=== PATIENT | female | born 1955 | race Caucasian/White ===

== ENCOUNTER → 2016-09-03 | Outpatient (CLI) | payer BC ==
--- NOTE | 2016-09-03 11:29 | MM ---
Reason for exam: screening (asymptomatic). Last mammogram was performed 1 year and 1 month ago. History: Patient is postmenopausal. Family history of breast cancer in sister at age 66 and breast cancer in sister at age 60. Taking estrogen for 16 years. Physical Findings: A clinical breast exam by your physician is recommended on an annual basis and results should be correlated with mammographic findings. MG Screening Mammo w CAD Bilateral CC and MLO view(s) were taken. Prior study comparison: August 15, 2015, bilateral MG screening mammo w CAD. August 12, 2014, bilateral MG screening mammo w CAD. The breast tissue is extremely dense which could obscure a lesion on mammography. Finding: There are typically benign round, diffuse/scattered calcifications in both breasts. There is no discrete abnormality. ASSESSMENT: Benign, BI-RAD 2 RECOMMENDATION: Routine screening mammogram of both breasts in 1 year.
--- NOTE | 2016-09-03 19:45 | WWHP ---
DATE OF SERVICE: 09/03/2016 CHIEF COMPLAINT: Patient is here for her routine gynecologic exam and mammogram. HISTORY OF PRESENT ILLNESS: This is a 61-year-old, G2, P2 with LMP of 1997. She is status post FRANCISCO JAVIER for benign reasons and also has had a previous BSO for benign reasons. She continues to be on low-dose ERT. She tried to come off of ERT about one month ago. She was off of the ERT for about 3 weeks and states hot flashes and anxiety became quite severe so she went back on low-dose ERT. PAST MEDICAL HISTORY: Environmental allergies. MEDICATIONS: 1. Estradiol 0.5 mg daily. 2. Singulair 10 mg daily. 3. Cetirizine 10 mg daily. ALLERGIES: No known drug allergies. 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 SOCIAL HISTORY: She denies tobacco and drug use and has 2 to 3 alcoholic drinks per month. She has been since 1972 and is infrequently sexually active. 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 REVIEW OF SYSTEMS: Weight has been stable. She denies respiratory, cardiac, or GI problems. PHYSICAL EXAM: Blood pressure 144/91. Height 5 feet 4 inches. Weight 163 pounds. Temperature 98.3, pulse 106. This is a well-developed, well-nourished white female who is alert and oriented x3 in no acute distress. HEENT: Within normal limits. NECK: Supple without mass or thyromegaly. CHEST AND LUNGS: Clear to auscultation. HEART: Regular rate and rhythm. BREASTS: Without mass or discharge. Axillary exam is negative for adenopathy. BACK: Negative for CVA tenderness. ABDOMEN: Soft, nontender, without palpable masses. PELVIC EXAM: External genitalia reveals mild atrophy without lesions. Vagina reveals mild atrophy without lesions. There is no evidence of prolapse. Bimanual exam is negative for mass or tenderness. Rectovaginal exam is negative for mass or tenderness and is negative for occult blood. EXTREMITIES: Nontender. IMPRESSION: 1. A 61-year-old menopausal female, status post total abdominal hysterectomy and bilateral salpingo-oophorectomy done for benign reasons. 2. Normal gynecologic exam. 3. Worsening vasomotor symptoms and anxiety when she tried to wean off of ERT. PLAN: 1. Pap smears have been discontinued. 2. Self-breast examination was discussed. 3. Mammogram will be done today. 4. We have had a long discussion regarding ERT. Because of her symptoms we have decided to continue low-dose ERT. Also discussed the possible increased risk for stroke on ERT. I have recommended that she try to wean off of ERT and she will do this in a more gradual way this year. 5. She will follow up with Dr. Mercado for her ongoing medical care. 6. She will return in one year.
== END | disposition home or self-care (01) ==
LOC: WWCWWP 09:44
PROVIDERS: ATTEND Obstetrics & Gynecology
DX: Z12.31 Encounter for screening mammogram for malignant neoplasm of breast (principal)

== ENCOUNTER → 2017-09-16 | Outpatient (CLI) | payer BC ==
--- NOTE | 2017-09-16 22:12 | WWHP ---
[facility] - HISTORY AND PHYSICAL DATE OF DICTATION: 09/16/2017 CHIEF COMPLAINT: The patient is here for her routine gynecologic exam and mammogram. HISTORY OF PRESENT ILLNESS: This is a 62-year-old G2, P2 with an LMP of 1997, She is status post FRANCISCO JAVIER and also BSO for benign reasons. The patient continues to be on low-dose ERT. She has been taking this for hot flashes and anxiety. She states she is planning to wean off of this during the upcoming year. PAST MEDICAL HISTORY: Environmental allergies. MEDICATIONS: 1. Estradiol 0.5 mg daily. 2. Singulair 10 mg daily. 3. Cetirizine 10 mg daily. 4. Kgqe-pet-pkuowek Flonase nasal spray as directed. ALLERGIES: NO KNOWN DRUG ALLERGIES. 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 SOCIAL HISTORY: She denies tobacco and drug use and has about 2 alcohol-containing drinks per week. She has been since 1972. She is a retired mammogram electronics warfare technician. REVIEW OF SYSTEMS: She has gained about 5 pounds over the last year. She denies respiratory, cardiac or GI problems. She recently got over a URI and had taken antibiotics for this. She states she developed slight vulvar pruritus after the antibiotics and thinks she might have the start of a yeast infection. PHYSICAL EXAMINATION: Blood pressure 146/89, height 5 feet 4 inches, weight 168 pounds, BMI 29. Temperature 98.5, pulse 96. This is a well-developed, well-nourished white female who is alert and oriented x3, in no acute distress. HEENT: Within normal limits. NECK: Supple without mass or thyromegaly. CHEST AND LUNGS: Clear to auscultation. HEART: Regular rate and rhythm. Breasts are without mass or discharge. Axillary exam is negative for adenopathy. BACK: Negative for CVA tenderness. ABDOMEN: Soft, nontender, without palpable masses. PELVIC EXAMINATION: External genitalia reveal mild atrophy without lesions. There is minimal erythema. Vagina reveals mild atrophy without lesions and there is no abnormal discharge noted. There is no odor. There is no evidence of prolapse. Bimanual exam is negative for mass or tenderness. Rectovaginal exam is negative for mass or tenderness and is negative for occult blood. Extremities are nontender. IMPRESSION: 1. Bouqo-jluq-fizx-old menopausal female who is status post total abdominal hysterectomy and bilateral salpingo-oophorectomy for benign reasons with unremarkable gynecologic exam. 2. Vulvar pruritus after using antibiotics. Possible early richie vulvitis. 3. Menopausal female on low-dose ERT for vasomotor symptoms and anxiety. PLAN: 1. Pap smears have been discontinued. 2. Self breast examination was discussed. 3. Screening mammogram will be done today. 4. The patient will use [id number] Monistat cream as directed to the external vulva and intravaginally as directed. She will call if her symptoms are not improving. 5. We have had a long discussion regarding ERT as well as possible risks of ERT, including increased risk for stroke and dementia and blood clots. The patient understands these things and states she will plan on weaning off of this right away. She will use her Estrace 0.5 mg every other day for up to 4 months and then try to wean completely off of this. She will call if she has any problems. 6. Osteoporosis prevention was discussed. We will plan on repeating bone density testing next year. 7. She will return in one year. MMODL / IJN: [id number] /
--- NOTE | 2017-09-17 09:30 | MM ---
Reason for exam: screening (asymptomatic). Last mammogram was performed 1 year ago. History: Patient is postmenopausal. Family history of breast cancer in sister at age 66 and breast cancer in sister at age 60. Taking estrogen for 16 years. Physical Findings: A clinical breast exam by your physician is recommended on an annual basis and results should be correlated with mammographic findings. MG Screening Mammo w CAD Bilateral CC and MLO view(s) were taken. Prior study comparison: September 03, 2016, bilateral MG screening mammo w CAD. August 15, 2015, bilateral MG screening mammo w CAD. The breast tissue is heterogeneously dense. This may lower the sensitivity of mammography. Finding: There are typically benign round, diffuse/scattered and grouped calcifications in both breasts. There is no discrete abnormality. ASSESSMENT: Benign, BI-RAD 2 RECOMMENDATION: Routine screening mammogram of both breasts in 1 year.
== END | disposition home or self-care (01) ==
LOC: WWCWWP 12:27
PROVIDERS: ATTEND Obstetrics & Gynecology
DX: Z12.31 Encounter for screening mammogram for malignant neoplasm of breast (principal)
CPT/HCPCS: 77067

== ENCOUNTER 2017-12-26 07:38 | Emergency (ER) | payer BC ==
[2017-12-26 08:03] VITALS: BP 142/84; PULSE 86; RESP 16; TEMP 98
--- NOTE | 2017-12-26 08:05 | ED ---
Lower Extremity Injury HPI - General Chief Complaint: Extremity Injury, Lower Stated Complaint: Fall, ankle pain Time Seen by Provider: 12/26/17 08:00 Source: patient, RN notes reviewed Mode of arrival: wheelchair Limitations: no limitations - History of Present Illness Initial Comments: This is a 62-year-old female presents emergency Department chief complaint of right foot and ankle pain. Patient states that she missed the bottom step yesterday and rolled her ankle. Patient states that his swollen and more painful today. She has had no prior fractures or injuries to her right ankle or foot. Patient states that she had no head neck back or upper extremity injuries. She does have ice on it currently. Patient offers no other complaints. - Related Data Home Medications Medication Instructions Recorded Confirmed Estradiol [Estrace] 0.5 mg PO DAILY 12/26/17 12/26/17 Montelukast [Singulair] 10 mg PO DAILY 12/26/17 12/26/17 Allergies Allergy/AdvReac Type Severity Reaction Status Date / Time No Known Allergies Allergy Verified 12/26/17 08:32 Review of Systems ROS Statement: Those systems with pertinent positive or pertinent negative responses have been documented in the HPI. ROS Other: All systems not noted in ROS Statement are negative. Past Medical History Past Medical History: No Reported History History of Any Multi-Drug Resistant Organisms: None Reported Past Surgical History: Hysterectomy, Tonsillectomy Additional Past Surgical History / Comment(s): sinus surgery, lasik bilaterally Past Psychological History: No Psychological Hx Reported Smoking Status: Former smoker Past Alcohol Use History: None Reported Past Drug Use History: None Reported General Exam Limitations: no limitations General appearance: alert, in no apparent distress Head exam: Present: atraumatic, normocephalic, normal inspection Respiratory exam: Present: normal lung sounds bilaterally. Absent: respiratory distress, wheezes, rales, rhonchi, stridor Cardiovascular Exam: Present: regular rate, normal rhythm, normal heart sounds. Absent: systolic murmur, diastolic murmur, rubs, gallop, clicks Extremities exam: Present: other Neurological exam: Present: reflexes normal (Right ankle there is moderate swelling on the lateral malleolus and lateral foot region there is mild to moderate tenderness with palpation the foot is neurovascularly intact). Absent : motor sensory deficit Skin exam: Present: warm, dry, intact, normal color. Absent: rash Course Vital Signs 12/26/17 08:00 Temperature 98 F Pulse Rate 86 Respiratory 16 Rate Blood Pressure 142/84 O2 Sat by Pulse 97 Oximetry Procedures - Orthopedic Splinting/Casting Injury #1 Side: right Lower Extremity Injury Location: short leg, ankle Lower Extremity Immobilizer: posterior splint, synthetic pre-padded splint Other Orthopedic Equipment: crutches Medical Decision Making - Medical Decision Making 62-year-old female presents for right ankle injury. X-rays were reviewed and radiologist stated there may be an avulsion fracture. Patient will be splinted and follow up with orthopedics today. Disposition Clinical Impression: Avulsion fracture of ankle Disposition: HOME SELF-CARE Condition: Stable Instructions: Ankle Fracture (ED) Additional Instructions: Please return to the Emergency Department if symptoms worsen or any other concerns. Is patient prescribed a controlled substance at d/c from ED?: No Referrals: Marlene Mercado MD [Primary Care Provider] - 1-2 days
--- NOTE | 2017-12-26 08:36 | XR ---
Right foot and right ankle HISTORY: Trauma and pain 3 views of the right foot and 3 views of the right ankle are submitted No comparisons Soft tissue swelling is noted about the ankle. Bone mineralization, joint spaces and alignment are ma intained. Calcification present at the insertion of the Achilles tendon. There is a plantar calcaneal spur present. Ossific densities about the tarsal bones are well-corticated and felt likely to be acc essory ossicles. At the level of the medial malleolus faint ossific densities are noted, there may be ossific density distal to the fibula on the oblique view. There may be a small avulsion injury. IMPRESSION: No dislocation is evident. There may be small avulsion injury as described.
== END 2017-12-26 08:50 | disposition home or self-care (01) ==
LOC: EC 07:38
DX: S82.891A Other fracture of right lower leg, initial encounter for closed fracture (principal); Z87.891 Personal history of nicotine dependence; Z79.818 Long term (current) use of other agents affecting estrogen receptors and estrogen levels; Z79.899 Other long term (current) drug therapy; W10.9XXA Fall (on) (from) unspecified stairs and steps, initial encounter; Y92.009 Unspecified place in unspecified non-institutional (private) residence as the place of occurrence of the external cause
CPT/HCPCS: 29515; 99283

== ENCOUNTER → 2018-08-20 | Day surgery (SDC) | payer MEDICARE ==
[2018-08-17 15:16] VITALS: BMI 27.4
[~2018-08-20] MED LIST: LACTATED RINGERS 1,000 ML IV SCH; LIDOCAINE 1% 20 ML VIAL (10MG/ML) FOR IV START INTRADERMA PRN; LIDOCAINE 1% INJ 10MG/ML (20 ML MDV) ONE; PROPOFOL 10 MG/ML 20 ML VIAL IV ONE
[2018-08-20 07:51] VITALS: RESP 18; TEMP 97.8
--- NOTE | 2018-08-20 09:08 | P.PCN ---
Date of Procedure: 08/20/18 Procedure(s) Performed: Procedure: Colonoscopy and polypectomy. Preoperative diagnosis: Family history of colon cancer and personal history of polyps. Postoperative diagnosis: 1. Two small/diminutive polyps in the cecum and distal sigmoid snared but no large polyps or cancer. 2. Mild sigmoid diverticulosis with no evidence of acute diverticulitis or strictures. Preparation: HalfLytely prep. Sedation: Was provided by anesthesia. Brief clinical history: The patient is a 63-year-old female with family history of colon cancer in her father and sister and who had polyps removed on a prior exam, is now scheduled for screening for neoplasia. Her last exam was around 5 years ago. She has no abdominal complaints, bleeding or anemia. Procedure: With the patient on her left lateral decubitus position and after informed consent and adequate sedation, the perianal area was inspected and it did not show any fissures or fistulas. There were no masses felt on digital rectal examination. The Olympus CFH 190L video colonoscope was then inserted in the rectum in the usual fashion and advanced to the cecum. There was a diminutive polyp in the cecum which I snared and retrieved by suction. There was another small polyp in the distal sigmoid close to the rectosigmoid junction which was snared and retrieved by suction. There was an occasional small diverticular orifices seen in the sigmoid. Otherwise, the exam to the cecum showed healthy mucosa with no other pathology noted. I retroflexed the endoscope in the rectum before the endoscope was withdrawn. The patient tolerated the procedure well. Plan: The patient was reassured. Discussed dietary measures. She will follow- up with you as planned and I recommended repeat exam in 5 years.
[2018-08-20 09:21] VITALS: BP 130/87; PULSE 78
== END ==
LOC: ORWHC2ENDO 07:21
DX: Z12.11 Encounter for screening for malignant neoplasm of colon (principal); D12.0 Benign neoplasm of cecum; D12.5 Benign neoplasm of sigmoid colon; K57.30 Diverticulosis of large intestine without perforation or abscess without bleeding; Z86.010 Personal history of colon polyps; Z80.0 Family history of malignant neoplasm of digestive organs; J44.9 Chronic obstructive pulmonary disease, unspecified; Z79.899 Other long term (current) drug therapy
CPT/HCPCS: 88305; 45385; J2001; J2704

== ENCOUNTER → 2018-09-22 | Outpatient (CLI) | payer MEDICARE ==
[2018-09-22 11:33] VITALS: BP 143/87; PULSE 109; RESP 16; TEMP 98.1; BMI 27.6
--- NOTE | 2018-09-22 12:16 | P.HPOB ---
History of Present Illness H&P Date: 09/22/18 Chief Complaint: The patient is here for her routine gynecologic exam and mammogram. This is a 63-year-old G2 PII with an LMP of 1997. She is status post FRANCISCO JAVIER and also BS0 for benign reasons. The patient was on low-dose ERT for a number of years, but weaned off of it and discontinued it in April 2018. She states she still does have hot flashes which can be bothersome, but she will continue to stay off of HRT. She also had relatives who had long-standing hot flashes even into the 80s. She is otherwise without gynecologic complaints. Review of Systems She has lost 7 pounds since last year. She stated she has done this with dietary changes.. She denies respiratory, cardiac and G.I. problems. She denies maltreatment or problems with falling. : she denies any significant problems with urinary leakage. Past Medical History Past Medical History: No Reported History Additional Past Medical History / Comment(s): environmental allergies, hiatal hernia, History of Any Multi-Drug Resistant Organisms: None Reported Past Surgical History: Adenoidectomy, Hysterectomy, Tonsillectomy, Tubal Ligation Additional Past Surgical History / Comment(s): sinus surgery, lasik bilaterally , FRANCISCO JAVIER with LSO in 1997, right oophorectomy 1983. Colonoscopy 2019(4th, [id number] ). 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 - Past Family History Father Family Medical History: Cancer Additional Family Medical History / Comment(s): colon CA. Sister(s) Family Medical History: Cancer, Diabetes Mellitus Additional Family Medical History / Comment(s): 2 sisters have breast cancer and one has colon cancer. Mother Family Medical History: Diabetes Mellitus Medications and Allergies Home Medications Medication Instructions Recorded Confirmed Type Montelukast [Singulair] 10 mg PO HS 12/26/17 09/22/18 History Cetirizine HCl 10 mg PO HS 08/17/18 09/22/18 History Fluticasone Nasal [place] [Flonase 1 spray EA NOSTRIL HS 08/17/18 09/22/[address] [place] [address]] Allergies Allergy/AdvReac Type Severity Reaction Status Date / Time No Known Allergies Allergy Verified 09/22/18 11:30 Exam Vital Signs Temp Pulse Resp BP Pulse Ox 09/22/18 11:31 98.1 F 109 H 16 143/87 97 Intake and Output 09/21/18 09/22/18 09/22/18 22:59 06:59 14:59 Other: Weight 73.028 kg This is a well-developed well-nourished white female who is alert and oriented times 3 in no acute distress. HEENT: Within normal limits. NECK: Supple without mass or thyromegaly. CHEST AND LUNGS: Clear to auscultation. HEART: Regular rate and rhythm. BREASTS: Are without mass or discharge. AXILLARY EXAM: Negative for adenopathy. BACK: Negative for CVA tenderness. ABDOMEN: Soft, nontender, without palpable masses. PELVIC EXAM: External genitalia appears normal with mild atrophy. Vagina appears normal mild atrophy. There is no evidence of prolapse. Bimanual examination is negative for mass or tenderness. RECTAL EXAM: Rectovaginal exam is negative for mass or tenderness and is negative for occult blood. EXTREMITIES: Nontender. IMPRESSION: 1. 63-year-old menopausal female status post FRANCISCO JAVIER and BSO done for benign reasons. 2. Normal gynecologic exam. 3. Menopausal vasomotor symptoms have returned after she discontinued ERT in . 4. Mildly elevated blood pressure. PLAN: 1. Pap smears have been discontinued. 2. Self breast awareness was discussed with the patient. 3. Screening mammogram will be done today. 4. We have had a long discussion regarding her vasomotor symptoms. We have discussed various options including low-dose ERT, SSRI medications, and blood pressure medications that can be used for hot flashes. She states she would like to continue to be off of ERT and medications for this. She will call if she is having worsening symptoms or problems. 5. We did not discuss her mildly elevated blood pressure while she was in the office today. I left a message on her voicemail to let her know that her blood pressure was mildly elevated and that I recommend regular blood pressure checks either at home or at a local pharmacy. She was also instructed to follow-up with her primary care physician if she has consistently elevated blood pressures. 6. She did receive a flu shot this past fall. 7. She will return in one year.
--- NOTE | 2018-09-22 13:43 | MM ---
Reason for exam: screening (asymptomatic). Last mammogram was performed 1 year ago. History: Patient is postmenopausal. Family history of breast cancer in sister at age 66 and breast cancer in sister at age 60. Taking estrogen for 16 years. Physical Findings: A clinical breast exam by your physician is recommended on an annual basis and results should be correlated with mammographic findings. MG 3D Screening Mammo W/Cad Bilateral CC and MLO view(s) were taken. Prior study comparison: September 16, 2017, bilateral MG screening mammo w CAD. September 03, 2016, bilateral MG screening mammo w CAD. The breast tissue is extremely dense which could obscure a lesion on mammography. Finding: There are typically benign round, regional, grouped, diffuse/scattered calcifications in both breasts. There is no discrete abnormality. ASSESSMENT: Benign, BI-RAD 2 RECOMMENDATION: Routine screening mammogram of both breasts in 1 year.
== END | disposition home or self-care (01) ==
LOC: WWCWWP 11:09
PROVIDERS: ATTEND Obstetrics & Gynecology
DX: Z12.31 Encounter for screening mammogram for malignant neoplasm of breast (principal)
CPT/HCPCS: 77063; 77067

== ENCOUNTER → 2019-09-28 | Outpatient (CLI) | payer MEDICARE ==
[2019-09-28 11:23] VITALS: BP 142/91; PULSE 103; RESP 18; TEMP 98
--- NOTE | 2019-09-28 12:01 | P.HPOB ---
History of Present Illness H&P Date: 09/28/19 Chief Complaint: The patient is here for her routine gynecologic exam and ma mmogram. This is a 64-year-old with an LMP of 1997. The patient is status post FRANCISCO JAVIER and also BSO at different times for benign reasons. The patient was weaned off of low-dose ERT in April 2018. She states she continues to have hot flashes especially between the hours of 8 PM to 8 AM. She is otherwise without gynecologic complaints. Review of Systems She is gained about 4 pounds over the past year. She denies respiratory, cardiac and G.I. problems. She denies maltreatment or problems with falling. : she denies any significant problems with urinary leakage. Past Medical History Past Medical History: No Reported History Additional Past Medical History / Comment(s): environmental allergies, hiatal hernia, History of Any Multi-Drug Resistant Organisms: None Reported Past Surgical History: Adenoidectomy, Hysterectomy, Tonsillectomy, Tubal Ligation Additional Past Surgical History / Comment(s): sinus surgery, lasik bilaterally, FRANCISCO JAVIER with LSO in 1997, right oophorectomy 1983. Colonoscopy 2019(4th, [id number]). Past Anesthesia/Blood Transfusion Reactions: Previous Problems w/ Anesthesia, Motion Sickness Additional Past Anesthesia/Blood Transfusion Reaction / Comment(s): "hard to wake up" Past Psychological History: No Psychological Hx Reported Smoking Status: Former smoker Past Alcohol Use History: Occasional (2 per week) Additional Past Alcohol Use History / Comment(s): quit smoking around age 23, smoked for 5 yrs, < 1 PPD Past Drug Use History: None Reported Additional History: She has been since 1972 and is sexually active. She is a retired mammogram collection technician. - Past Family History Father Family Medical History: Cancer Additional Family Medical History / Comment(s): colon CA. Sister(s) Family Medical History: Cancer, Diabetes Mellitus Additional Family Medical History / Comment(s): 2 sisters have breast cancer and one has colon cancer. Mother Family Medical History: Diabetes Mellitus Medications and Allergies Home Medications Medication Instructions Recorded Confirmed Type Montelukast [Singulair] 10 mg PO HS 12/26/17 09/28/19 History Cetirizine HCl 10 mg PO HS 08/17/18 09/28/19 History Fluticasone Nasal [place] [Flonase 1 spray EA NOSTRIL HS 08/17/18 09/28/19 History Nasal [place]] Cholecalciferol [Vitamin D3 (25 5,000 unit PO DAILY 09/28/19 09/28/19 History Mcg = 1000 Iu)] Allergies Allergy/AdvReac Type Severity Reaction Status Date / Time No Known Allergies Allergy Verified 09/28/19 11:23 Exam Vital Signs Temp Pulse Resp BP Pulse Ox 09/28/19 11:17 98.0 F 103 H 18 142/91 95 Intake and Output 09/27/19 09/28/19 09/28/19 22:59 06:59 14:59 Other: Weight 74.843 kg Height 5 feet 4 inches, weight 165 pounds, BMI 28.3. This is a well-developed well-nourished white female who is alert and oriented times 3 in no acute distress. HEENT: Within normal limits. NECK: Supple without mass or thyromegaly. CHEST AND LUNGS: Clear to auscultation. HEART: Regular rate and rhythm. BREASTS: Are without mass or discharge. AXILLARY EXAM: Negative for adenopathy. BACK: Negative for CVA tenderness. ABDOMEN: Soft, nontender, without palpable masses. PELVIC EXAM: External genitalia appears normal with mild atrophy. Vagina appears normal with mild atrophy. There is no evidence of prolapse. Bimanual examination is negative for mass or tenderness. RECTAL EXAM: Rectovaginal exam is negative for mass or tenderness and is negative for occult blood. EXTREMITIES: Nontender. IMPRESSION: 1. 64-year-old menopausal female status post FRANCISCO JAVIER and BSO for benign reasons, with normal gynecologic exam. 2. Vasomotor symptoms after discontinuing ERT in 2018. PLAN: 1. Pap smears have been discontinued. 2. Self breast awareness was discussed with the patient. 3. screening mammogram will be done today. 4. we have discussed how her blood pressure is mildly elevated. I recommended that she check her own blood pressures on a regular basis and follow up with her PCP for blood pressure elevations. 5. we have also discussed different options for her vasomotor symptoms. I have recommended against restarting ERT especially with her strong family history of breast cancer. We have discussed other options including SSRI medications as well as clonidine use. She will discuss with her PCP whether or not she should start a blood pressure medication and, if so, she can consider clonidine use which may help with her vasomotor symptoms . 6.she did get a flu shot this past fall. 7. The patient was advised to return in 1-2 years for her well woman examination.
--- NOTE | 2019-09-28 15:24 | BD ---
EXAMINATION TYPE: Axial Bone Density DATE OF EXAM: 09/28/2019 COMPARISON: 2011 CLINICAL HISTORY: Height: 64 inches Weight: 160 pounds FRAX RISK QUESTIONS: Alcohol (3 or more units per day): no Family History (Parent hip fracture): yes, mother Glucocorticoids (More than 3mos): no (Ex: prednisone, prednisolone, methylprednisolone, dexamethasone, and hydrocortisone). History of Fracture in Adulthood: no Secondary Osteoporosis: 1. Type 1 Diabetes: no 2. Hyperthyroidism: no 3. Menopause before 45: yes 4. Malnutrition: no 5. Chronic liver disease: no Rheumatoid Arthritis: no Current Tobacco Use: no RISK FACTORS HISTORY OF: Family History of Osteoporosis: no Active: yes Diet low in dairy products/other sources of calcium: no Postmenopausal woman: yes Take estrogen and/or progesterone medications: not now How long: about 16 years Lost more than 2 inches in height since high school: no Frequent falls: no Poor Health: no Hyperparathyroidism: no Adrenal Insufficiency: no MEDICATIONS: Prednisone or other steroids: no Thyroid Medications: no Osteoporosis Medications:no Additional Medications: Additional History: EXAM MEASUREMENTS: Bone mineral densitometry was performed using the [employer] System. Bone mineral density as measured about the Lumbar spine is: ----- L1-L4(G/cm2): 1.338 T Score Values are as follows: ----- L2: 0.9 ----- L3: 2.0 ----- L4: 1.2 ----- L1-L4: 1.3 Bone mineral density has: Decreased -2.8% since study of: 07/17/2012 Bone mineral density about the R hip (g/cm2): 1.034 Bone mineral density about the L hip (g/cm2): 1.015 T Score values are as follows: -----R Neck: 0.0 -----L Neck: -0.2 -----R Total: 0.7 -----L Total: 0.7 Bone mineral density has: Decreased -1.9% since study of: 07/17/2012 IMPRESSION: Normal (Values between +1 and -1 indicate normal bone mass). Consider repeating this study in 5 year s or sooner if there is some new clinical indication. NOTE: T-SCORE=SD OF THE YOUNG ADULT MEAN.
--- NOTE | 2019-09-29 11:16 | MM ---
Reason for exam: screening (asymptomatic). Last mammogram was performed 1 year ago. History: Patient is postmenopausal. Family history of breast cancer in sister at age 66 and breast cancer in sister at age 60. Taking estrogen for 16 years. Physical Findings: A clinical breast exam by your physician is recommended on an annual basis and results should be correlated with mammographic findings. MG 3D Screening Mammo W/Cad Bilateral CC and MLO view(s) were taken. Prior study comparison: September 22, 2018, bilateral MG 3d screening mammo w/cad. September 16, 2017, bilateral MG screening mammo w CAD. The breast tissue is extremely dense which could obscure a lesion on mammography. There are benign appearing round diffuse regional and grouped calcifications bilaterally. There is no discrete abnormality. ASSESSMENT: Benign, BI-RAD 2 RECOMMENDATION: Routine screening mammogram of both breasts in 1 year.
== END | disposition home or self-care (01) ==
LOC: WWCWWP 11:04
PROVIDERS: ATTEND Obstetrics & Gynecology
DX: Z12.31 Encounter for screening mammogram for malignant neoplasm of breast (principal); Z78.0 Asymptomatic menopausal state
CPT/HCPCS: 77063; 77067; 77080

== ENCOUNTER → 2021-01-16 | Outpatient (CLI) | payer MEDICARE ==
[2021-01-16 15:47] VITALS: BP 134/88; PULSE 83; RESP 18; TEMP 98.2
--- NOTE | 2021-01-16 16:36 | P.HPOB ---
History of Present Illness H&P Date: 01/16/21 Chief Complaint: The patient is here for her routine gynecologic exam and ma mmogram. This is a 65-year-old with an LMP of 1997. The patient is status post FRANCISCO JAVIER and also BSO at different times for benign reasons. The patient is without gynecologic complaints. Review of Systems The patient's weight has been stable over the last year. She denies respiratory, cardiac, or G.I. problems. Past Medical History Past Medical History: Hyperlipidemia Additional Past Medical History / Comment(s): environmental allergies, hiatal hernia. 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 History of Any Multi-Drug Resistant Organisms: None Reported Past Surgical History: Adenoidectomy, Hysterectomy, Tonsillectomy, Tubal Ligation Additional Past Surgical History / Comment(s): sinus surgery, lasik bilaterally, FRANCISCO JAVIER with LSO in 1997, right oophorectomy 1983. Colonoscopy 2019(4th, [id number]). Past Anesthesia/Blood Transfusion Reactions: Previous Problems w/ Anesthesia, Motion Sickness Additional Past Anesthesia/Blood Transfusion Reaction / Comment(s): "hard to wake up" Past Psychological History: No Psychological Hx Reported Smoking Status: Former smoker Past Alcohol Use History: Occasional (2 per month) Additional Past Alcohol Use History / Comment(s): quit smoking around age 23, smoked for 5 yrs, < 1 PPD Past Drug Use History: None Reported Additional History: She has been since 1972 and is no longer sexually active. She is a retired mammogram pharmacy technician assistant - Past Family History Father Family Medical History: Cancer Additional Family Medical History / Comment(s): colon CA. Sister(s) Family Medical History: Cancer, Diabetes Mellitus Additional Family Medical History / Comment(s): 2 sisters have breast cancer (one of which had breast cancer twice and this sister tested negative for cancer gene mutations). and one had colon cancer. Mother Family Medical History: Diabetes Mellitus Medications and Allergies Home Medications Medication Instructions Recorded Confirmed Type Montelukast [Singulair] 10 mg PO HS 12/26/01/16/21 History Cetirizine HCl 10 mg PO HS 08/17/18 01/16/21 History Fluticasone Nasal [place] [Flonase 1 spray EA NOSTRIL HS 08/17/18 01/16/21 History Nasal [place]] Cholecalciferol [Vitamin D3 (25 5,000 unit PO DAILY 09/28/19 01/16/21 History Mcg = 1000 Iu)] Atorvastatin [Lipitor] 40 mg PO HS 01/16/21 01/16/21 History Allergies Allergy/AdvReac Type Severity Reaction Status Date / Time No Known Allergies Allergy Verified 01/16/21 15:26 Exam Vital Signs Temp Pulse Resp BP Pulse Ox 01/16/21 15:28 98.2 F 83 18 134/88 94 L Intake and Output 01/16/21 01/16/21 01/16/21 06:59 14:59 22:59 Other: Weight 74.389 kg Height 5 feet 4 inches, weight 164 pounds, BMI 28.2. This is a well-developed well-nourished white female who is alert and oriented times 3 in no acute distress. HEENT: Within normal limits. NECK: Supple without mass or thyromegaly. CHEST AND LUNGS: Clear to auscultation. HEART: Regular rate and rhythm. BREASTS: Are without mass or discharge. AXILLARY EXAM: Negative for adenopathy. BACK: Negative for CVA tenderness. ABDOMEN: Soft, nontender, without palpable masses. PELVIC EXAM: External genitalia appears normal with mild atrophy. Vagina appears normal with mild atrophy. There is no evidence of prolapse. Bimanual examination is negative for mass or tenderness. RECTAL EXAM: Rectovaginal exam is negative for mass or tenderness and is negative for occult blood. EXTREMITIES: Nontender. IMPRESSION: 1. 65-year-old menopausal female status post FRANCISCO JAVIER and BSO for benign reasons, with normal gynecologic exam. 2. Family history of breast and colon cancer. Sister with breast cancer tested negative for for cancer gene mutations. PLAN: 1. Pap smears have been discontinued. 2. Self breast awareness was discussed with the patient. 3. Screening mammogram will be done today. 4. We have discussed cancer genetic counseling and testing. She is declining this at this time. She will let me know if she changes her mind about this. 5. Osteoporosis prevention was discussed. Her bone density test done last year was normal and she will repeat this in approximately 5 years. 6. She was advised to return in one year for her annual well woman exam.
--- NOTE | 2021-01-17 13:47 | MM ---
Reason for exam: screening (asymptomatic). Last mammogram was performed 1 year and 4 months ago. History: Patient is postmenopausal. Family history of breast cancer in sister at age 66 and breast cancer in sister at age 60. Taking estrogen for 16 years. Physical Findings: A clinical breast exam by your physician is recommended on an annual basis and results should be correlated with mammographic findings. MG 3D Screening Mammo W/Cad Bilateral CC and MLO view(s) were taken. Prior study comparison: September 28, 2019, bilateral MG 3d screening mammo w/cad. September 22, 2018, bilateral MG 3d screening mammo w/cad. The breast tissue is heterogeneously dense. This may lower the sensitivity of mammography. Bilateral calcifications. No significant changes when compared with prior studies. ASSESSMENT: Benign, BI-RAD 2 RECOMMENDATION: Routine screening mammogram of both breasts in 1 year.
== END | disposition home or self-care (01) ==
LOC: WWCWWP 14:59
PROVIDERS: ATTEND Obstetrics & Gynecology
DX: Z12.31 Encounter for screening mammogram for malignant neoplasm of breast (principal); Z90.710 Acquired absence of both cervix and uterus; Z80.3 Family history of malignant neoplasm of breast; Z80.0 Family history of malignant neoplasm of digestive organs; Z78.0 Asymptomatic menopausal state; Z90.722 Acquired absence of ovaries, bilateral; Z87.891 Personal history of nicotine dependence; E78.5 Hyperlipidemia, unspecified; Z79.899 Other long term (current) drug therapy
CPT/HCPCS: 77063; 77067

== ENCOUNTER → 2022-02-12 | Outpatient (CLI) | payer MEDICARE ==
[2022-02-12 08:08] VITALS: BP 127/84; PULSE 100; RESP 17; TEMP 98.3
--- NOTE | 2022-02-12 08:35 | P.HPOB ---
History of Present Illness H&P Date: 02/12/22 Chief Complaint: The patient is here for her routine gynecologic exam and ma mmogram. This is a 66-year-old with an LMP of 1997. The patient is status post FRANCISCO JAVIER and also BSO at different times for benign reasons. She is without gynecologic complaints. She again is declining genetic cancer counseling or testing. Review of Systems The patient has gained 5 pounds over the last year. She denies respiratory, cardiac, or G.I. problems. Past Medical History Past Medical History: GERD/Reflux, Hyperlipidemia, Hypertension Additional Past Medical History / Comment(s): Environmental allergies, hiatal hernia. 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 History of Any Multi-Drug Resistant Organisms: None Reported Past Surgical History: Adenoidectomy, Hysterectomy, Tonsillectomy, Tubal Ligation Additional Past Surgical History / Comment(s): Sinus surgery, bilateral lasik eye surgery, FRANCISCO JAVIER with LSO in 1997, right oophorectomy in 1983, colonoscopy X4(last 2018, next 5yr). Past Anesthesia/Blood Transfusion Reactions: Previous Problems w/ Anesthesia, Motion Sickness Additional Past Anesthesia/Blood Transfusion Reaction / Comment(s): "Can be hard to wake up." Past Psychological History: No Psychological Hx Reported Smoking Status: Former smoker Past Alcohol Use History: Occasional (2 per month) Additional Past Alcohol Use History / Comment(s): Quit smoking around age 23, smoked for 5 yrs, < 1 PPD. Past Drug Use History: None Reported Additional History: She has been since 1972 and is no longer sexually active. She is a retired mammogram security system technician. - Past Family History Father Family Medical History: Cancer Additional Family Medical History / Comment(s): Colon Cancer. Sister(s) Family Medical History: Cancer, Diabetes Mellitus Additional Family Medical History / Comment(s): 2 sisters have breast cancer (one of which had breast cancer twice and this sister tested negative for cancer gene mutations) and one had colon cancer. One sister has Parkinson's disease. Mother Family Medical History: Diabetes Mellitus Medications and Allergies Home Medications Medication Instructions Recorded Confirmed Type Montelukast [Singulair] 10 mg PO HS 12/26/02/12/22 History Cetirizine HCl 10 mg PO HS 08/17/18 02/12/22 History Cholecalciferol [Vitamin D3 (25 5,000 unit PO DAILY 09/28/19 02/12/22 History Mcg = 1000 Iu)] Atorvastatin [Lipitor] 40 mg PO HS 01/16/21 02/12/22 History Multivitamins, Thera [Multivitamin 1 tab PO DAILY 10/24/21 02/12/22 History (formulary)] Losartan [Cozaar] 25 mg PO DAILY 02/12/22 02/12/22 History Allergies Allergy/AdvReac Type Severity Reaction Status Date / Time No Known Allergies Allergy Verified 02/12/22 08:00 Exam Vital Signs Temp Pulse Resp BP Pulse Ox 02/12/22 08:06 98.3 F 100 17 127/84 96 Intake and Output 02/11/22 02/12/22 02/12/22 22:59 06:59 14:59 Other: Weight 76.657 kg Height 5 feet 4 inches, weight 169 pounds, BMI 29.0. This is a well-developed well-nourished white female who is alert and oriented times 3 in no acute distress. HEENT: Within normal limits. NECK: Supple without mass or thyromegaly. CHEST AND LUNGS: Clear to auscultation. HEART: Regular rate and rhythm. BREASTS: Are without mass or discharge. AXILLARY EXAM: Negative for adenopathy. BACK: Negative for CVA tenderness. ABDOMEN: Soft, nontender, without palpable masses. PELVIC EXAM: External genitalia appears normal with mild atrophy. Vagina appears normal with mild atrophy. There is no evidence of prolapse. Bimanual examination is negative for mass or tenderness. RECTAL EXAM: Rectovaginal exam is negative for mass or tenderness and is negative for occult blood. EXTREMITIES: Nontender. IMPRESSION: 1. 66-year-old menopausal female status post FRANCISCO JAVIER and BSO for benign reasons, with normal gynecologic exam. 2. Family history of breast and colon cancer. He sister with breast cancer tested negative for cancer gene mutations. PLAN: 1. Pap smears have been discontinued. 2. Self breast awareness was discussed with the patient. We have also discussed symptoms associated with inflammatory breast cancer. 3. Screening mammogram will be done today. 4. Osteoporosis prevention was discussed. She had a normal bone density test in 2019. We will plan on repeating bone density testing again in approximately 2025. 5. She has completed her Covid vaccination series and did receive a booster. 6. She again is declining any cancer genetics counseling or testing. 7. Colonoscopy will be due in 2023, 5 years after her last one. 8. She was advised to return in one year for her annual well woman exam.
--- NOTE | 2022-02-13 09:12 | MM ---
Reason for Exam: Screening (asymptomatic). Last mammogram was performed 1 year(s) and 1 month(s) ago. Patient History: Menarche at age 10. First Full-Term at age 17. Left ovary removed at age 42. Right ovary removed at age 28. Hysterectomy at age 42. Postmenopausal. Patient used Estrogen for 16 years. Sister had breast cancer, age 66. Sister had breast cancer, age 60. Risk Values: [place] 5 year model risk: 8.1%. NCI Lifetime model risk: 23.9%. Prior Study Comparison: 09/22/2018 Bilateral Screening Mammogram, [facility]. 09/28/2019 Bilateral Screening Mammogram, [facility]. 01/16/2021 Bilateral Screening Mammogram, [facility]. Tissue Density: The breast tissue is heterogeneously dense. This may lower the sensitivity of mammography. Findings: Analyzed By CAD. There is no suspicious group of microcalcifications or new suspicious mass in either breast. Overall Assessment: Negative, BI-RAD 1 Management: Screening Mammogram of both breasts in 1 year. A clinical breast exam by your physician is recommended on an annual basis and results should be correlated with mammographic findings. Electronically signed and approved by: Slick Jimenez M.D. Radiologis
== END | disposition home or self-care (01) ==
LOC: WWCWWP 07:53
PROVIDERS: ATTEND Obstetrics & Gynecology
DX: Z12.31 Encounter for screening mammogram for malignant neoplasm of breast (principal)
CPT/HCPCS: 77063; 77067

== ENCOUNTER → 2023-02-18 | Outpatient (CLI) | payer MEDICARE ==
[2023-02-18 12:58] VITALS: BP 127/82; PULSE 94; RESP 18; TEMP 98.2
--- NOTE | 2023-02-18 13:21 | P.HPOB ---
History of Present Illness H&P Date: 02/18/23 Chief Complaint: The patient is here for her routine gynecologic exam and ma mmogram. This is a 67-year-old with an LMP of 1997. She is status post FRANCISCO JAVIER and BSO at different times for benign reasons. She is without gynecologic complaints. Review of Systems The patient has gained 3 pounds over the last year. She denies respiratory, cardiac, or G.I. problems. Past Medical History Past Medical History: GERD/Reflux, Hyperlipidemia, Hypertension Additional Past Medical History / Comment(s): Environmental allergies, hiatal hernia. 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 History of Any Multi-Drug Resistant Organisms: None Reported Past Surgical History: Adenoidectomy, Hysterectomy, Tonsillectomy, Tubal Ligation Additional Past Surgical History / Comment(s): Sinus surgery, bilateral lasik eye surgery, FRANCISCO JAVIER with LSO in 1997, right oophorectomy in 1983, colonoscopy X4(last 2018, next 5yr). Past Anesthesia/Blood Transfusion Reactions: Previous Problems w/ Anesthesia, Motion Sickness Additional Past Anesthesia/Blood Transfusion Reaction / Comment(s): "Can be hard to wake up." Past Psychological History: No Psychological Hx Reported Smoking Status: Former smoker Past Alcohol Use History: Occasional (One per month.) Additional Past Alcohol Use History / Comment(s): Quit smoking around age 23, smoked for 5 yrs, < 1 PPD. Past Drug Use History: None Reported Additional History: She has been since 1972 and is not sexually active. She is a retired mammogram mechanical manufacturing technician. - Past Family History Father Family Medical History: Cancer Additional Family Medical History / Comment(s): Colon Cancer. Sister(s) Family Medical History: Cancer, Diabetes Mellitus Additional Family Medical History / Comment(s): 2 sisters have breast cancer (one of which had breast cancer twice and this sister tested negative for cancer gene mutations) and one had colon cancer. One sister has Parkinson's disease. Mother Family Medical History: Diabetes Mellitus Medications and Allergies Home Medications Medication Instructions Recorded Confirmed Type Montelukast [Singulair] 10 mg PO HS 12/26/17 02/18/23 History Cetirizine HCl 10 mg PO HS 08/17/18 02/18/23 History Cholecalciferol [Vitamin D3 (25 5,000 unit PO DAILY 09/28/19 02/18/23 History Mcg = 1000 Iu)] Atorvastatin [Lipitor] 40 mg PO HS 01/16/21 02/18/23 History Multivitamins, Thera [Multivitamin 1 tab PO DAILY 10/24/21 02/18/23 History (formulary)] Losartan [Cozaar] 25 mg PO DAILY 02/12/22 02/18/23 History Fluticasone Nasal [place] [Flonase 1 spray EA NOSTRIL DAILY 02/18/23 02/18/23 History Nasal [place]] Allergies Allergy/AdvReac Type Severity Reaction Status Date / Time No Known Allergies Allergy Verified 02/18/23 12:53 Exam Vital Signs Temp Pulse Resp BP Pulse Ox 02/18/23 12:53 98.2 F 94 18 127/82 96 Intake and Output 02/17/23 02/18/23 02/18/23 22:59 06:59 14:59 Other: Weight 78.018 kg Height 5 feet 5 inches, weight 172 pounds, BMI 28.6. This is a well-developed well-nourished white female who is alert and oriented times 3 in no acute distress. HEENT: Within normal limits. NECK: Supple without mass or thyromegaly. CHEST AND LUNGS: Clear to auscultation. HEART: Regular rate and rhythm. BREASTS: Are without mass or discharge. AXILLARY EXAM: Negative for adenopathy. BACK: Negative for CVA tenderness. ABDOMEN: Soft, nontender, without palpable masses. PELVIC EXAM: External genitalia reveals a small benign-appearing inclusion cyst on the inner aspect of the left labia majora measuring approximately 3-4 mm. This is nontender and non-erythematous. There is mild atrophy noted in the external genitalia. Vagina appears normal with mild atrophy. There is no evidence of prolapse. Bimanual examination is negative for mass or tenderness. RECTAL EXAM: Rectovaginal exam is negative for mass or tenderness and is negative for occult blood. EXTREMITIES: Nontender. IMPRESSION: 1. 67-year-old menopausal female status post FRANCISCO JAVIER/BSO for benign reasons, with with benign-appearing left labial inclusion cyst measuring approximately 3-4 mm. The patient states she has noticed this and has not had any problems with it. 2. 2 sisters with breast cancer. PLAN: 1. Pap smears have been discontinued. 2. Self breast awareness was discussed with the patient. We have also discussed symptoms associated with inflammatory breast cancer. 3. Screening mammogram will be done today. 4. Osteoporosis prevention was discussed. I have stressed the importance of adequate calcium, vitamin D and regular exercise. Recommended amounts of calcium and vitamin D were also discussed. She had a normal bone density test in 2019 and we'll plan on repeating it again in approximately 2025. 5. I have reassured the patient that the left labial inclusion cyst does not need any intervention. She will keep an eye on it and call if she is noticing any significant changes or if it is causing problems. 6. She has denied genetic cancer testing in the past. 7. She was advised to return in one year for her annual well woman exam.
--- NOTE | 2023-02-19 20:40 | MM ---
Reason for Exam: Screening (asymptomatic). Last screening mammogram was performed 12 month(s) ago. Patient History: Menarche at age 10. First Full-Term at age 17. Left ovary removed at age 42. Right ovary removed at age 28. Hysterectomy at age 42. Postmenopausal. Patient used Estrogen for 16 years. Sister had breast cancer, age 66. Sister had breast cancer, age 60. Risk Values: Gila 5 year model risk: 8.1%. NCI Lifetime model risk: 23.0%. Prior Study Comparison: 09/28/2019 Bilateral Screening Mammogram, [facility]. 01/16/2021 Bilateral Screening Mammogram, [facility]. 02/12/2022 Bilateral MG 3D screening mammo w/cad, [facility]. Tissue Density: The breast tissue is heterogeneously dense. This may lower the sensitivity of mammography. Findings: Analyzed By CAD. Posterior upper outer quadrant focal asymmetry appear more defined and incompletely disperse on 3-D images. Further evaluation is recommended. Diffuse bilateral punctate calcifications are redemonstrated. Overall Assessment: Incomplete: need additional imaging evaluation, BI-RAD 0 Management: Special View Mammogram of the left breast. Diagnostic Breast Ultrasound of both breasts. Additional views left breast include spot 3-D CC, spot 3-D MLO, and 3-D lateral views. Additional whole bilateral breast ultrasounds given dense tissues and increased risk scores. [facility] will attempt to contact patient to return for supplemental views and ultrasound if indicated. Electronically signed and approved by: Juvenal Templeton M.D. Radiologist
== END ==
LOC: WWCWWP 12:33
PROVIDERS: ATTEND Obstetrics & Gynecology
DX: Z12.31 Encounter for screening mammogram for malignant neoplasm of breast (principal); E78.5 Hyperlipidemia, unspecified; K21.9 Gastro-esophageal reflux disease without esophagitis; I10 Essential (primary) hypertension; N90.7 Vulvar cyst; Z87.891 Personal history of nicotine dependence; Z80.3 Family history of malignant neoplasm of breast; Z78.0 Asymptomatic menopausal state; Z90.710 Acquired absence of both cervix and uterus
CPT/HCPCS: 77063; 77067

== ENCOUNTER → 2023-02-25 | Outpatient (CLI) | payer MEDICARE ==
--- NOTE | 2023-02-25 10:57 | MM ---
Reason for Exam: Additional evaluation requested from abnormal screening. Last screening mammogram was performed less than 1 month ago. Patient History: Menarche at age 10. First Full-Term at age 17. Left ovary removed at age 42. Right ovary removed at age 28. Hysterectomy at age 42. Postmenopausal. Patient used Estrogen for 16 years. Sister had breast cancer, age 66. Sister had breast cancer, age 60. Risk Values: Gila 5 year model risk: 8.1%. NCI Lifetime model risk: 23.0%. Prior Study Comparison: 01/16/2021 Bilateral Screening Mammogram, [facility]. 02/12/2022 Bilateral MG 3D screening mammo w/cad, [facility]. 02/18/2023 Bilateral MG 3D screening mammo w/cad, [facility]. Tissue Density: Left: The breast tissue is heterogeneously dense. This may lower the sensitivity of mammography. Findings: Analyzed By CAD. Focal asymmetry posterior upper outer quadrant left breast incompletely disperses on 3-D images but no distinct mass is depicted on spot 3-D views. Findings may reflect an area of global asymmetry. Further ultrasound evaluation recommended. Overall Assessment: Incomplete: need additional imaging evaluation, BI-RAD 0 Management: Diagnostic Breast Ultrasound of the left breast. 1:00 to 3:00 position. Electronically signed and approved by: Juvenal Templeton M.D. Radiologist
--- NOTE | 2023-02-25 11:59 | USB ---
Reason for Exam: Additional evaluation requested from abnormal screening. Patient History: Menarche at age 10. First Full-Term at age 17. Left ovary removed at age 42. Right ovary removed at age 28. Hysterectomy at age 42. Postmenopausal. Patient used Estrogen for 16 years. Sister had breast cancer, age 66. Sister had breast cancer, age 60. Risk Values: Gila 5 year model risk: 8.1%. NCI Lifetime model risk: 23.0%. Technique: Method: Targeted. Prior Study Comparison: 10/31/1995 Screening Mammogram, Unknown. 01/16/2021 Bilateral Screening Mammogram, [facility]. 02/12/2022 Bilateral MG 3D screening mammo w/cad, [facility]. 02/18/2023 Bilateral MG 3D screening mammo w/cad, [facility]. Findings: The upper outer quadrant of the left breast, the axilla of the left breast and the retroareolar of the left breast were scanned. Targeted ultrasound upper outer quadrant left breast 12:00 to 3:00 including the subareolar region and axilla. Tiny scattered cysts are present measuring up to 3 mm. No suspicious solid or cystic lesion. Dense tissue is present throughout. Overall Assessment: Probably benign, BI-RAD 3 Management: Diagnostic Mammogram of the left breast in 6 months. 1. Note the patient's very high Gila score and overall lifetime risk for the development of breast cancer. Consider specialist referral to assess eligibility for a risk reducing agent. In addition, the patient may qualify for future screening with alternating mammogram and breast MRI. 2. Patient should continue monthly self breast exams. A clinical breast exam by your physician is recommended on an annual basis. 3. This exam should not preclude additional follow-up of suspicious palpable abnormalities. Electronically signed and approved by: Juvenal Templeton M.D. Radiologist
== END | disposition home or self-care (01) ==
LOC: RADMAMWWP 10:23
PROVIDERS: ATTEND Obstetrics & Gynecology
DX: R92.8 Other abnormal and inconclusive findings on diagnostic imaging of breast (principal); Z78.0 Asymptomatic menopausal state; Z80.3 Family history of malignant neoplasm of breast
CPT/HCPCS: 77065; 76642; G0279; 77061

== ENCOUNTER → 2023-08-22 | Day surgery (SDC) | payer MEDICARE ==
[2023-08-18 15:33] VITALS: BMI 28.3
[~2023-08-22] MED LIST changes: +LIDOCAINE 1% (10MG/ML) FOR IV START INTRADERMA PRN; -LIDOCAINE 1% 20 ML VIAL (10MG/ML) FOR IV START INTRADERMA PRN; -LIDOCAINE 1% INJ 10MG/ML (20 ML MDV) ONE
[2023-08-22 07:46] VITALS: TEMP 97
--- NOTE | 2023-08-22 08:26 | P.PCN ---
Date of Procedure: 08/22/23 Procedure(s) Performed: BRIEF HISTORY: Patient is a 68-year-old pleasant female scheduled for an elective colonoscopy as a part of screening for colon cancer and family history of colon cancer. Her sister and dad was diagnosed with colon cancer in his 60s and 70s respectively. Last coloscopy was 5 years ago. PROCEDURE PERFORMED: Colonoscopy. PREOPERATIVE DIAGNOSIS: Screening for colon cancer and family history of colon cancer. IV sedation per Anesthesia. PROCEDURE: After informed consent was obtained, the patient, was brought into the endoscopy unit. IV sedation was administered by Anesthesia under continuous monitoring. Digital rectal examination was normal. Initially the Olympus CF-160 flexible video colonoscope was then inserted in the rectum, gradually advanced into the cecum without any difficulty. Careful examination was performed as the scope was gradually being withdrawn. Ileocecal valve and the appendiceal orifice were visualized and appeared normal. Prep was excellent. Mucosa of the cecum, ascending colon, transverse colon, descending colon, sigmoid colon, and rectum appeared normal. Scattered sigmoid diverticulosis. Retroflexion was performed in the rectum and no lesions were seen. The patient tolerated the procedure well. IMPRESSION: Normal-appearing colon from rectum to cecum no evidence of colorectal neoplasia. Scattered sigmoid diverticula RECOMMENDATIONS: Findings of this examination were discussed with the patient that is a family. She was advised to have a repeat colonoscopy in 5 years because of the family history of colon cancer.
[2023-08-22 09:07] VITALS: RESP 16
[2023-08-22 09:35] VITALS: BP 139/80; PULSE 74
== END ==
LOC: ORWHC2ENDO 06:59
PROVIDERS: ATTEND Internal Medicine Gastroenterology
DX: Z12.11 Encounter for screening for malignant neoplasm of colon (principal); Z80.0 Family history of malignant neoplasm of digestive organs; I10 Essential (primary) hypertension; K57.30 Diverticulosis of large intestine without perforation or abscess without bleeding; E78.5 Hyperlipidemia, unspecified; K21.9 Gastro-esophageal reflux disease without esophagitis; Z79.899 Other long term (current) drug therapy; Z87.891 Personal history of nicotine dependence
CPT/HCPCS: J2704; G0105

== ENCOUNTER → 2023-08-29 | Outpatient (CLI) | payer MEDICARE ==
--- NOTE | 2023-08-29 11:04 | MM ---
Reason for Exam: Follow-up at short interval from prior study. Last screening mammogram was performed 7 month(s) ago. Patient History: Menarche at age 10. First Full-Term at age 17. Left ovary removed at age 42. Right ovary removed at age 28. Hysterectomy at age 42. Postmenopausal. Patient used Estrogen for 16 years. Sister had breast cancer, age 66. Sister had breast cancer, age 60. Risk Values: Gila 5 year model risk: 8.1%. NCI Lifetime model risk: 22.0%. Prior Study Comparison: 02/12/2022 Bilateral MG 3D screening mammo w/cad, [facility]. 02/18/2023 Bilateral MG 3D screening mammo w/cad, [facility]. 02/25/2023 Left MG 3D work up w/cad , [facility]. Tissue Density: Left: The breast tissue is heterogeneously dense. This may lower the sensitivity of mammography. Findings: Analyzed By CAD. No distinct mass or distortion. No suspicious microcalcifications. Scattered benign calcifications redemonstrated. Overall Assessment: Benign, BI-RAD 2 Management: Screening Mammogram of both breasts in 6 months. . Results were given to the patient verbally at the time of exam. Patient should continue monthly self-breast exams. A clinical breast exam by your physician is recommended on an annual basis. This exam should not preclude additional follow-up of suspicious palpable abnormalities. Note on Gila scores and lifetime risk: 1. A Gila score greater than 3% is considered moderate risk. If this is the case, consider specialist referral to assess eligibility for a risk reducing agent. 2. If overall lifetime risk for the development of breast cancer is 20% or higher, the patient may qualify for future screening with alternating mammogram and breast MRI. Electronically signed and approved by: Slick Jimenez M.D. Radiologis
== END | disposition home or self-care (01) ==
LOC: RADMAMWWP 10:38
PROVIDERS: ATTEND Obstetrics & Gynecology
DX: R92.332 Mammographic heterogeneous density, left breast (principal); Z78.0 Asymptomatic menopausal state; Z80.3 Family history of malignant neoplasm of breast
CPT/HCPCS: 77065; G0279; 77061

== ENCOUNTER → 2024-03-02 | Outpatient (CLI) | payer MEDICARE ==
--- NOTE | 2024-03-30 09:09 | MM ---
Reason for Exam: Screening (asymptomatic). Last mammogram was performed 1 year(s) and 1 month(s) ago. Patient History: Menarche at age 10. First Full-Term at age 17. Left ovary removed at age 42. Right ovary removed at age 28. Hysterectomy at age 42. Postmenopausal. Patient used Estrogen for 16 years. Sister had breast cancer, age 66. Sister had breast cancer, age 60. Sister tested for BRCA1 outcome was negative. Risk Values: Gila 5 year model risk: 8.1%. NCI Lifetime model risk: 22.0%. Prior Study Comparison: 02/18/2023 Bilateral MG 3D screening mammo w/cad, [facility]. 02/25/2023 Left MG 3D work up w/cad LT, [facility]. 08/29/2023 Left MG 3D diag mammo w/cad LT, [facility]. Tissue Density: The breasts are heterogeneously dense, which may obscure small masses. Findings: Analyzed By CAD. Right breast: There is no suspicious group of microcalcifications or new suspicious mass. Benign-appearing calcifications right breast. Left breast: There is no suspicious group of microcalcifications or new suspicious mass. Benign-appearing calcifications left breast. Overall Assessment: Benign, BI-RAD 2 Management: Screening Mammogram of both breasts in [address] [facility] will attempt to contact patient to return for supplemental views and ultrasound if indicated. Patient should continue monthly self-breast exams. A clinical breast exam by your physician is recommended on an annual basis. This exam should not preclude additional follow-up of suspicious palpable abnormalities. Note on Gila scores and lifetime risk: 1. A Gila score greater than 3% is considered moderate risk. If this is the case, consider specialist referral to assess eligibility for a risk reducing agent. 2. If overall lifetime risk for the development of breast cancer is 20% or higher, the patient may qualify for future screening with alternating mammogram and breast MRI. Electronically signed and approved by: Anton Donald DO
--- NOTE | 2024-03-30 16:34 | P.HPOB ---
History of Present Illness H&P Date: 03/02/24 (Information is being inputted to the EMR on 03/30/2024 from her 03/02/2024 visit. The handwritten document from that date should be scanned in. Information for this document is coming from that handwritten document. The computer system was down at that time.) Chief Complaint: The patient is here for her routine gynecologic exam and mammogram. This is a 68-year-old with an LMP of 1997. The patient is without gynecologic complaints. Review of Systems The patient's weight has been stable over the last year. She denies respiratory, cardiac, or G.I. problems. Past Medical History Past Medical History: GERD/Reflux, Hyperlipidemia, Hypertension Additional Past Medical History / Comment(s): Environmental allergies, hiatal hernia. PAST [employer] HISTORY: She has no history of STDs. History of Any Multi-Drug Resistant Organisms: None Reported Past Surgical History: Adenoidectomy, Hysterectomy, Tonsillectomy, Tubal Ligation Additional Past Surgical History / Comment(s): Sinus surgery, bilateral lasik eye surgery, FRANCISCO JAVIER with LSO in 1997, right oophorectomy in 1983, colonoscopy 08/22/23(next 5yr)., Past Anesthesia/Blood Transfusion Reactions: Previous Problems w/ Anesthesia, Motion Sickness Additional Past Anesthesia/Blood Transfusion Reaction / Comment(s): "Can be hard to wake up.". no blood transfusion Smoking Status: Former smoker Past Alcohol Use History: Occasional (1 drink per week.) Additional Past Alcohol Use History / Comment(s): Quit smoking cigarettes at age 23. Past Drug Use History: None Reported Additional History: She is and is not sexually active. - Past Family History Father Family Medical History: Cancer Additional Family Medical History / Comment(s): Colon Cancer. Sister(s) Family Medical History: Cancer, Diabetes Mellitus Additional Family Medical History / Comment(s): 2 sisters have breast cancer (one of which had breast cancer twice and this sister tested negative for cancer gene mutations) and one had colon cancer. One sister has Parkinson's disease. Mother Family Medical History: Diabetes Mellitus Medications and Allergies Home Medications Medication Instructions Recorded Confirmed Type Montelukast [Singulair] 10 mg PO HS 12/26/17 08/22/23 History Cetirizine HCl 10 mg PO HS 08/17/18 08/22/23 History Cholecalciferol [Vitamin D3 (25 5,000 unit PO DAILY 09/28/19 08/22/23 History Mcg = 1000 Iu)] Atorvastatin [Lipitor] 40 mg PO HS 01/16/21 08/22/23 History Multivitamins, Thera [Multivitamin 1 tab PO DAILY 10/24/21 08/22/23 History (formulary)] Losartan [Cozaar] 25 mg PO DAILY 02/12/22 08/22/23 History Fluticasone Nasal Dike [Flonase 1 spray EA NOSTRIL DAILY 02/18/23 08/22/23 History Nasal Dike] Allergies Allergy/AdvReac Type Severity Reaction Status Date / Time No Known Allergies Allergy Verified 08/22/23 07:28 Exam Blood pressure 116/82, height 5 feet 4 inches, weight 179 pounds, BMI 29, temperature 98.2, pulse 91, pulse oximeter 96%. This is a well-developed well-nourished white female who is alert and oriented times 3 in no acute distress. HEENT: Within normal limits. NECK: Supple without mass or thyromegaly. CHEST AND LUNGS: Clear to auscultation. HEART: Regular rate and rhythm. BREASTS: Are without mass or discharge. AXILLARY EXAM: Negative for adenopathy. BACK: Negative for CVA tenderness. ABDOMEN: Soft, nontender, without palpable masses. PELVIC EXAM: External genitalia reveals a stable 3 to 4 mm anterior to the left labia majora inclusion cyst. External genitalia also reveals mild atrophy. Vagina appears normal with mild atrophy. There is no unusual discharge. There is no evidence of prolapse. Bimanual examination reveals no palpable adnexal masses or tenderness. RECTAL EXAM: Rectovaginal exam is negative for mass or tenderness and is negative for occult blood. EXTREMITIES: Nontender. IMPRESSION: 1. 68-year-old menopausal female status post FRANCISCO JAVIER/BSO for benign reasons, with normal gynecologic exam. 2. Family history of breast cancer in 2 sisters. PLAN: 1. Pap smears have been discontinued. 2. Self breast awareness was discussed with the patient. 3. Screening mammogram was done on 03/02/2024. 4. Osteoporosis prevention was discussed. Will plan on repeating the bone density test in 1 year since her last one in 2019 was normal. 5. She was advised to return in one year for her annual well woman exam. This H&P was from her 03/02/2024 visit and was inputted into the EHR on 03/30/2024. This was from the handwritten H&P done on 03/02/2024 and it was handwritten at that time because the computers were down.
== END | disposition home or self-care (01) ==
LOC: RADBDWWP 02-29 12:00
PROVIDERS: ATTEND Obstetrics & Gynecology
DX: Z12.31 Encounter for screening mammogram for malignant neoplasm of breast (principal)
CPT/HCPCS: 77063; 77067